=== PATIENT | female | born 1965 | race Caucasian/White ===

== ENCOUNTER 2022-10-02 13:09 | Outpatient (REF) | payer MEDICARE, MEDICAID, SELFPAY ==
--- NOTE | ~2022-10-02 | XR_ITS ---
EXAMINATION: XR LUMBOSACRAL SPINE WITH OBLIQUES CLINICAL INFORMATION: Back pain. COMPARISON: None available. TECHNIQUE: AP, both oblique, and lateral views of the lumbar spine. Lateral view of the lumbosacral junction. FINDINGS: There is bony demineralization. There is a mild lumbar levoscoliosis. At T9-T10 and T10-T11, there is moderate disc space narrowing. There is well-maintained alignment status-post L4-L5 posterior fusion and discectomy, with intact posterior fixator rods, pedicular screws and disc spacer. No hardware failure or loosening is seen. There are upper abdominal surgical clips. There are aortoiliac atherosclerotic calcifications. XR/XR lumbar spine 4V min IMPRESSION: 1. There is well-maintained alignment status-post L4-L5 posterior fusion and discectomy. No hardware failure is seen. 2. There is moderate degenerative disc disease at T9-T10 and T10-T11. 3. There is a mild lumbar levoscoliosis.
== END 2022-10-02 13:10 | disposition home or self-care (01) ==
LOC: HO.HOSX 13:09
PROVIDERS: PCP Physician Assistant Medical; Visit Provider Physician Assistant
DX: M54.9 Dorsalgia, unspecified (principal)
CPT/HCPCS: 72110; 99202

== ENCOUNTER 2023-06-19 12:46 | Outpatient (AMB) | payer MEDICARE, MEDICAID, SELFPAY ==
--- NOTE | 2023-06-19 12:57 | A.SPINEOV_ITS ---
Intake Intake Visit Reasons: evaluation for SI fusion Intake Note: Ms. Castellano is here today after F/u with [facility] to evaluate for SI Fusion. External Relations Manager Required: No Allergies ibuprofen [From MOTRIN] Allergy (Unknown, Unverified 12/22/19 16:37) UNKNOWN Assessment & Plan Assessment & Plan (1) Back pain: Code(s): M54.9 - Dorsalgia, unspecified Plan Mrs Castellano is back in the office today to discuss possible SI joint fusion. She has had persistent back pain for years, underwent lumbar fusion with Dr Blanco without any relief. She had him remove the hardware last year, but that didn't help either. She then underwent injections for her SI joint and unfortunately these gave her no relief. She is wondering if we could do an SI joint fusion on her, but we discussed the fact that we would need two successive SI joint blocks with at least 80% pain relief before insurance companies would even authorize us to do any kind of intervention on her. It may just be that the SI joint is not the source of her pain altogether. I would have expected at least some modest or more relief from the injections. Unfortunately we can not offer her any surgery. Total amount of time spent in this visit was 20 minutes in discussion of symptoms, SI joint injection results and subsequent plan of care Kashif Peraza MD,PhD [facility] Coding Level of Care Code Est Pt Level 3 (62790) Diagnoses Back pain M54.9
== END 2023-06-19 14:40 | disposition home or self-care (01) ==
PROVIDERS: PCP Internal Medicine; Visit Provider Physician Assistant
DX: M54.9 Dorsalgia, unspecified (principal)
CPT/HCPCS: 99213

== ENCOUNTER → 2023-06-19 12:46 | Outpatient (BNVA) | payer MEDICARE, MEDICAID, SELFPAY | PROVIDERS: PCP Internal Medicine; Visit Provider Physician Assistant | DX: M54.9 Dorsalgia, unspecified (principal) | CPT/HCPCS: 99212 ==